=== PATIENT | male | born 1985 | race Two or more races ===

== ENCOUNTER 2017-02-09 09:30 | Emergency (ER) | payer BC, OTHER ==
[2017-02-09 09:39] VITALS: BP 95/60; PULSE 71; TEMP 98; BMI 20.9
[2017-02-09] MEDS ORDERED: TETRACAINE 0.5% OPHTH SOLN 2 ML BOTTLE OS ONE (10:59)
--- NOTE | 2017-02-09 11:00 | PDOC ---
History of Present Illness - General Chief Complaint: Eye Problem Stated Complaint: EYE INJURY AT WORK Time Seen by Provider: 02/09/17 10:59 History Source: Patient Exam Limitations: No Limitations - History of Present Illness Initial Comments: 02/09/17 11:52 Chief complaint: left eye pain with tearing and photophobia hit in left eye by a plastic tray History of present illness: He is a 31-year-old male with no significant medical problems except for myopia for which he wears glasses here today after he was getting a box off of a shelf and did not notice that there was a white plastic tray on it that fell and hit him directly in his left eye. Patient did not have his glasses on at the time or any contacts patient reports that he immediately felt pain in his left eye as if something were in his eye with tearing and photophobia with slightly blurred vision. Patient was having a difficult time keeping his left eye opening due to pain. He also has a tiny abrasion to left outer lateral left eye. Patient reports the pain in left eye is severe at this time. Patient denies that he has increased pain with movement of his left eye or any orbital pain around left eye. Occurred: reports: just prior to arrival Severity: reports: moderate (left eye ) Pain Location: reports: other (left eye pain, tearing, photophobia) Method of Injury: Yes: direct blow (by a plastic traY ) Modifying Factors: improves with: None Loss of Consciousness: no loss of consciousness Associated Symptoms (Fall): other (tiny abrasion left lateral eye on skin ) Past History - Past Medical History Allergies/Adverse Reactions: Allergies Allergy/AdvReac Type Severity Reaction Status Date / Time No Known Allergies Allergy Verified 02/09/17 09:38 Home Medications: Ambulatory Orders Tobramycin 0.3% Ophth Soln [Tobrex Ophthalmic Solution -] 2 drop OS Q6HPO #1 drops 02/09/17 Other medical history: NONE - Psycho/Social/Smoking Cessation Hx Suicidal Ideation: No Smoking History: Never smoked Hx Alcohol Use: Yes (SOCIAL) Drug/Substance Use Hx: No Substance Use Type: None Review of Systems - Review of Systems Able to Perform ROS?: Yes Constitutional: No: Symptoms Reported HEENTM: Yes: Symptoms Reported (left ), Eye Pain, Blurred Vision (left eye), Tearing (left ), Other (wears glasses for myopia did not have them on ) Respiratory: No: Symptoms reported Cardiac (ROS): No: Symptoms Reported ABD/GI: No: Symptoms Reported : No: Symptoms Reported Musculoskeletal: No: Symptoms Reported Integumentary: Yes: Other (tiny abrasion left lateral corner of eye ) *Physical Exam - Vital Signs Last Vital Signs Temp Pulse Resp BP Pulse Ox 98.0 F 71 20 95/60 99 02/09/17 09:35 02/09/17 09:35 02/09/17 09:35 02/09/17 09:35 02/09/17 09:35 - Physical Exam General Appearance: Yes: Appropriately Dressed HEENT: positive: EOMI, ANSHU, Photophobia (left eye, tearing, sclera injected), Other (no hypema or laceration of eye noted ). negative: Orbits (left ) Neck: negative: Tender, Rigidity, Tender lateral, Tender midline Respiratory/Chest: positive: Lungs Clear, Normal Breath Sounds. 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 Patient did not have his glasses on at the time or any contacts patient reports that he immediately felt pain in his left eye as if something were in his eye with tearing and photophobia with slightly blurred vision. Patient was having a difficult time keeping his left eye opening due to pain. He also has a tiny abrasion to left outer lateral left eye. Patient reports the pain in left eye is severe at this time. Patient denies that he has increased pain with movement of his left eye or any orbital pain around left eye. Left eye corneal abrasion left out lateral corner of left eye PLAN: tetracaine 0.5% 2 drops left eye using black light noted corneal abrasion noted at 6 pm follow up with opthomologist today Dr. Gardner is expecting you tobramycin 0.3 % opth gerry 2 drops left eye now than q 6 hrs for 5 days 02/10/17 16:42 02/10/17 16:42 *DC/Admit/Observation/Transfer Diagnosis at time of Disposition: Corneal abrasion, left Qualifiers: Encounter type: initial encounter Qualified Code(s): S05.02XA - Injury of conjunctiva and corneal abrasion without foreign body, left eye, initial encounter - Discharge Dispostion Disposition: HOME Condition at time of disposition: Stable - Prescriptions Prescriptions: Tobramycin 0.3% Ophth Soln [Tobrex Ophthalmic Solution -] 2 drop OS Q6HPO #1 drops - Referrals Referrals: Corky Hatfield MD [Primary Care Provider] - - Patient Instructions Additional Instructions: Follow-up with your on site manager today [address] [place] [address] [place] [address] Dr. Blessing Gardner [phone] Return to emergency room if symptoms worsen You may take Tylenol as needed for pain as directed by violin mechanic Patient voiced understanding of discharge instructions and all questions were answered - Post Discharge Activity Work/School Note: Back to Work
[2017-02-09] MEDS ORDERED: TOBRAMYCIN 0.3% OPHTH SOLN 5 ML BOTTLE OS ONE (11:43)
[2017-02-09] MEDS ORDERED: TOBRAMYCIN 0.3% OPHTH SOLN 5 ML BOTTLE ONE (11:53)
[2017-02-09] MEDS ORDERED: ACETAMINOPHEN 500 MG TABLET (FP) PO ONE (12:10)
[2017-02-09] MEDS ORDERED: ACETAMINOPHEN 500 MG TABLET (FP) ONE (12:16)
== END 2017-02-09 12:26 | disposition home or self-care (01) ==
LOC: JERFT 09:30
DX: S05.02XA Injury of conjunctiva and corneal abrasion without foreign body, left eye, initial encounter (principal); W20.8XXA Other cause of strike by thrown, projected or falling object, initial encounter; Y93.89 Activity, other specified; Y92.9 Unspecified place or not applicable
CPT/HCPCS: 99281-25